=== PATIENT | female | born 1975 | race Caucasian/White ===

== ENCOUNTER 2024-08-21 17:28 | Emergency (ER) | payer OTHER, SELFPAY ==
--- NOTE | ~2024-08-21 | XR_ITS ---
EXAMINATION: XR chest 1V portable DATE: 08/21/2024 18:11 INDICATION: Right chest pain. TECHNIQUE: A single frontal view of the chest was obtained. COMPARISON: None. FINDINGS: There are airspace opacities in right lower lung zone. There is mild atelectasis in left lo wer lung zone. No pleural effusion or pneumothorax. The heart size is normal. IMPRESSION: 1. Airspace opacities in right lower lung zone, consistent with atelectasis versus pneumonia. Reviewed, dictated and finalized at location A. R SALES ASSOCIATE IMPRESSION: 1. Airspace opacities in right lower lung zone, consistent with atelectasis lynda susannah pneumonia.
--- NOTE | ~2024-08-21 | CT_ITS ---
EXAMINATION: CTA chest PE protocol DATE: 08/21/2024 19:23 INDICATION: Shortness of breath. Chest pain. TECHNIQUE: Computed tomography angiography (CTA) of the chest was performed with 100 mL Omnipaque-350 intravenous contrast timed to evaluate the pulmonary arteries. Coronal maximum intensity projection 3D-reconstructions were created by the technologist. Automated exposure control and iterative reconst ruction technique were employed. The dose-length product was 264.62 mGy-cm. COMPARISON: Chest single view 08/21/2024 FINDINGS: There is mild scarring at the lung apices. There are airspace opacities in right middle lob e and right lower lobe, consistent with pneumonia. No pleural effusion. The heart size is normal. No pericardial effusion. There is no pulmonary embolus. There is mild thoracic spondylosis. IMPRESSION: 1. Pneumonia in right middle lobe and right lower lobe. 2. No pulmonary embolus. Sensitivity is moderately decreased by motion artifact. Reviewed, dictated and finalized at location A. ATTENDANT IMPRESSION: 1. Pneumonia in right middle lobe and right lower lobe. 2. No pulmonary embolus. Sensitivity is moderately decreased by motion artifact .
--- NOTE | 2024-08-21 17:46 | ED.URI ---
HPI - URI/Sore Throat General Chief Complaint: Upper Respiratory Infection Stated Complaint: SOB Time Seen by Provider: 08/21/24 17:46 Discharge Plan Discharge Patient Language: Vietnamese Follow-up/Referrals: UNKNOWN,DOCTOR [Primary Care Provider] -
--- NOTE | 2024-08-21 17:51 | ED_ITS ---
HPI - Chest Pain General Chief Complaint: Upper Respiratory Infection Stated Complaint: SOB Time Seen by Provider: 08/21/24 17:46 Source: patient Mode of arrival: ambulatory Limitations: no limitations History of Present Illness HPI narrative: 48-year-old female, nonsmoker, Congenital solitary kidney presents to the ED with a 2 day history of -- right anterior chest wall pain which is sharp and stabbing and made worse by coughing -- nonproductive cough no fever or chills no upper respiratory tract symptoms MD complaint: chest pain Onset (ago): day(s) ( 2 days) Timing of current episode: episodic Prior episodes: No Onset: other ( during coughing and breathing) Pain location: right chest Pain radiation: none Severity: severe Quality: sharp Relieving factors: nothing Exacerbating factors: inspiration Treatment prior to arrival: none Risk Factors Coronary artery disease risk factors: none Thoracic aortic dissection risk factors: none Related Data On Oral Contraceptives: No Allergies Allergy/AdvReac Type Severity Reaction Status Date / Time No Known Allergies Allergy Verified 08/21/24 18:04 Review of Systems 2 Review of Systems: All systems reviewed & are unremarkable except as noted in HPI and below Constitutional: Constitutional: Reports as per HPI and Reports no additional constitutional complaints Eyes: Eyes: Reports as per HPI and Reports no additional eye complaints ENT: Reports system reviewed and no additional complaints, except as documented and Reports as per HPI Cardiovascular: Cardiovascular: Reports as per HPI and Reports no additional cardiovascular complaints Respiratory: Comments: right chest wall pain which is sharp and stabbing and made worse by inspiration and coughing. Gastrointestinal: Gastrointestinal: Reports as per HPI and Reports no additional gastrointestinal complaints Genitourinary: Genitourinary: Reports no additional female genitourinary complaints and Reports as per HPI Musculoskeletal: Musculoskeletal: Reports no additional musculoskeletal complaints and Reports as per HPI Integumentary/Breasts: Skin/Breast: Reports system reviewed and no additional complaints, except as docu and Reports as per HPI Neurologic: Reports system reviewed and no additional complaints, except as documented and Reports as per HPI Psychiatric: Psychiatric: Reports no additional psychiatric complaints and Reports as per HPI Endocrine: Endocrine: Reports no additional endocrine complaints and Reports as per HPI Hematologic/Lymphatic: Hematologic/Lymphatic: Reports no additional hematologic/lymphatic complaints and Reports as per HPI Allergic/Immunologic: Allergic/Immunologic: Reports no additional allergic/immunologic complaints and Reports as per HPI PMFSH Surgical History Surgical History (Updated 08/21/24 @ 17:57 by Tunde Rubin MD) H/O tubal ligation Exam 2 Narrative: afebrile. Vitals are stable. Heart rate of 81. Oxygen saturation of 99% on room air. Const: General: no acute distress Orientation/consciousness: patient oriented x3 Limitations: no limitations HENMT: Head: normal to inspection Ears: external ears normal F kristopher/Nose/Sinus: Normal external nose present Face and sinus: normal facial exam Mouth: Yes Normal oral and palatal mucosa present Throat: posterior oropharynx normal Eyes: Conjunctivae: conjunctivae normal Pupils: Equal, round and reactive pupils present EOM: EOMs intact bilaterally Direct Ophthalmoscopy: no photophobia Neck: Neck: normal visual inspection and no lymphadenopathy Chest: Chest palpation & inspection: normal inspection of the chest Resp: Effort & Inspection: normal respiratory effort Other: Decreased breath sounds on the right side Cardio: Rate: regular rate Rhythm: regular rhythm GI: GI Palp: Yes Soft to palpation Auscultation: normal bowel sounds O ther: no tenderness/ rigidity /rebound. : General: Yes no CVA tenderness Back/Spine/Pelvis: Back: no CVA tenderness Skin: General skin exam: normal color Rashes: no rashes Wounds: no wounds Neuro: General: patient oriented x3, moves all extremities, no meningeal signs, no focal motor deficits and CN's II-XI intact bilaterally Cranial nerves: Yes Nystagmus not present Speech: normal speech Extrem: General: normal to inspection and no clubbing, cyanosis or edema Psych: Mental Status: mental status grossly normal Affect: normal affect Attitude: cooperative Course Course Emergency Course: Right chest wall pain/ pleurisy right lower lobe/ right middle lobe pneumonia-- give a dose of IV Rocephin and IV Zithromax. Will discharge home on Augmentin and Zithromax. influenza a-- will treat with Tamiflu Vital Signs Vital signs: Vital Signs Temperature 36.8 C 08/21/24 17:59 Pulse Rate 81 08/21/24 17:59 Respiratory Rate 20 08/21/24 17:59 Blood Pressure 140/96 H 08/21/24 17:59 Pulse Oximetry 100 08/21/24 17:59 Oxygen Delivery Room Air 08/21/24 17:59 Temperature 36.8 C 08/21/24 17:59 Pulse Rate 81 08/21/24 17:59 Respiratory Rate 20 08/21/24 17:59 Blood Pressure 140/96 H 08/21/24 17:59 Pulse Oximetry 100 08/21/24 18:02 Oxygen Delivery Room Air 08/21/24 18:02 MDM - Chest Pain MDM Narrative Medical decision making narrative: Right middle lobe/right lower lobe pneumonia Differential Diagnosis Differential diagnosis: Likely fracture of rib and pneumothorax Medical Records Data Attestation: I reviewed the patient's medical records. Lab Data Attestation: I reviewed the patient's lab results. 08/21/24 18:11 08/21/24 18:11 Labs: Lab Results 08/21/24 08/21/24 08/21/24 Range/Units 18:00 18:11 19:40 WBC 12.7 H (4.8-10.8) K/mm3 RBC 4.86 (4.20-5.40) M/mm3 Hgb 14.0 (12.0-15.0) g/dL Hct 43.7 (35.0-49.0) % MCV 89.9 (78.0-102.0) fL MCH 28.8 (27.0-31.0) pg MCHC 32.0 (32-36) g/dL RDW 12.9 (11.6-14.4) % Plt Count 575 H (150-420) K/mm3 MPV 8.7 L (9.2-11.8) fl Immature Gran % (Auto) 0.5 H (0.0-0.0) % Neut % (Auto) 67.7 (50.0-70.0) % Lymph % (Auto) 21.6 (18.0-42.0) % [place] % (Auto) 9.7 (2.0-11.0) % Eos % (Auto) 0.3 L (1.0-6.0) % Baso % (Auto) 0.2 (0.0-1.0) % Lymph # (Auto) 2.75 (1.10-4.50) K/mm3 [place] # (Auto) 1.23 H (0.10-0.90) K/mm3 Eos # (Auto) 0.04 (0.02-0.50) K/mm3 Baso # (Auto) 0.03 (0.00-0.10) K/mm3 Abs Immat Gran (auto) 0.06 H (0.00-0.00) K/mm3 Absolute Neuts (auto) 8.63 H (1.70-7.20) K/mm3 Absolute Nucleated RBC 0.00 (0.00-0.00) K/mm3 Nucleated RBC % 0.0 (0-0.0) % % Immature Plt Fraction 1.3 (1.0-7.0) % PT 9.8 (9.50-12.1) Seconds INR 0.9 APTT 29.3 (23.9-30.70) Sec D-Dimer 1.51 H* (0.19-0.50) mg/L Sodium 142 (136-145) mmol/L Potassium 3.8 (3.5-5.1) mmol/L Chloride 103 (98-108) mmol/L Carbon Dioxide 30 (21-32) mmol/L Anion Gap 9 (4-12) mmol/L BUN 12 (7-18) mg/dL Creatinine 0.87 (0.55-1.02) mg/dL Estim Creat Clear Calc 73 ml/min Estimated GFR > 60 (59 - ) Glucose 114 H (70-99) mg/dL Calculated Osmolality 294 (285-295) mOsm/kg Lactic Acid 1.1 (0.4-2.0) mmol/L Calcium 8.8 (8.5-10.1) mg/dL Total Bilirubin 0.3 (0.00-1.00) mg/dL AST 24 (15-37) U/L ALT 37 (14-59) U/L Alkaline Phosphatase 80 (46-116) U/L Troponin I 6.1 (0.00-60.4) ng/L Total Protein 6.9 (6.4-8.2) g/dL Albumin 2.6 L (3.4-5.0) g/dL Urine Color Pending Urine Appearance Pending Urine pH Pending Ur Specific [place] Pending Urine Protein Pending Urine Glucose (UA) Pending Urine Ketones Pending Ur Blood (Man) Pending Urine Nitrate Pending Urine Bilirubin Pending Urine Urobilinogen Pending Leukocyte Esterase Rfl Pending Influenza A (RT-PCR) Positive A (Negative) Influenza B (RT-PCR) Negative (Negative) RSV (RT-PCR) Negative (Negative) SARS-CoV-2 RNA (RT-PCR) Negative (Negative) ECG Data EKG #1: ECG completion date: 08/21/24 ECG completion time: 19:16 Interpretation: Normal sinus rhythm. Normal axis. Left ventricular hypertrophy. No ST elevation. Discharge Plan Discharge Clinical Impression: Pneumonia, Pleurisy, Influenza A Patient Disposition: Home, Self-Care Condition: Stable Instructions: Antibiotic Form, Influenza (ED), Bacterial Pneumonia (ED) Patient Language: Occitan Prescriptions: New amoxicillin-pot clavulanate 875-125 mg tablet 1 tablet PO Q12H Qty: 14 0RF azithromycin [Zithromax] 250 mg tablet 250 mg PO DAILY 4 Days Qty: 4 0RF Rx Instructions: start on day 2 of therapy oseltamivir [Tamiflu] 75 mg capsule 75 mg PO Q12H 5 Days Qty: 10 0RF Follow-up/Referrals: UNKNOWN,DOCTOR [Primary Care Provider] - Time of Disposition: 20:08
[2024-08-21 17:59] VITALS: BP 140/96; PULSE 81; RESP 20; TEMP 36.8; O2SAT 100
--- NOTE | 2024-08-21 17:59 | ECG_ITS ---
Test Date: 2024-08-21 19:16:10 Measurements Intervals [place] Rate: 83 P: 74 NC: 149 QRS: 71 QRSD: 88 T: 72 QT: 357 QTc: 420 Interpretive Statements SINUS RHYTHM VOLTAGE CRITERIA FOR LVH BORDERLINE ST ABNORMALITY- ANTEROLAT/INF LEADS BASELINE ARTIFACT- I, II, III, AVR, AVL, AVF BORDERLINE ECG No previous ECG available for comparison Electronically Signed On 08-22-2024 05:57:46 CREDENTIALING ASSISTANT by Pablo Fernandez D.O.
[2024-08-21 18:02] VITALS: O2SAT 100
--- NOTE | 2024-08-21 18:08 | PC.NURSE ---
Covid culture sent to lab
[2024-08-21 18:16] LABS: Basophils Absolute Auto 0.03 K/mm3 (0.00-0.10); Basophils Percent Auto 0.2 % (0.0-1.0); Eosinophils Absolute Auto 0.04 K/mm3 (0.02-0.50); Eosinophils Percent Auto 0.3 % (1.0-6.0); Hematocrit 43.7 % (35.0-49.0); Immature Granulocyte Absolute 0.06 K/mm3 (0.00-0.00); Immature Granulocyte Percent A 0.5 % (0.0-0.0); Immature Platelet Fraction Pct 1.3 % (1.0-7.0); Lymphocytes Absolute Auto 2.75 K/mm3 (1.10-4.50); Lymphocytes Percent Auto 21.6 % (18.0-42.0); Mean Corpuscular Hemoglobin 28.8 pg (27.0-31.0); Mean Corpuscular Volume 89.9 fL (78.0-102.0); Mean Platelet Volume 8.7 fl (9.2-11.8); Monocytes Absolute Auto 1.23 K/mm3 (0.10-0.90); Monocytes Percent Auto 9.7 % (2.0-11.0); Neutrophils Absolute Auto 8.63 K/mm3 (1.70-7.20); Neutrophils Percent Auto 67.7 % (50.0-70.0); Platelet Count Result 575 K/mm3 (150-420); Red Blood Count 4.86 M/mm3 (4.20-5.40); Red Cell Distribution Width 12.9 % (11.6-14.4); White Blood Count 12.7 K/mm3 (4.8-10.8)
[2024-08-21 18:29] LABS: INR 0.9; Partial Thromboplastin Time 29.3 Sec (23.9-30.70); Prothrombin Time 9.8 Seconds (9.50-12.1)
[2024-08-21 18:33] LABS: Lactic Acid Reflex 1.1 mmol/L (0.4-2.0)
[2024-08-21 18:38] LABS: D Dimer 1.51 mg/L (0.19-0.50)
[2024-08-21 18:39] LABS: Alanine Aminotransferase 37 U/L (14-59); Albumin Level 2.6 g/dL (3.4-5.0); Alkaline Phosphatase 80 U/L (46-116); Anion Gap 9 mmol/L (4-12); Aspartate Amino Transferase 24 U/L (15-37); Bilirubin,Total 0.3 mg/dL (0.00-1.00); Blood Urea Nitrogen 12 mg/dL (7-18); Calcium 8.8 mg/dL (8.5-10.1); Carbon Dioxide 30 mmol/L (21-32); Chloride 103 mmol/L (98-108); Estimated CRCL calculation 73 ml/min; Estimated Glomerular Filt Rate > 60; Glucose 114 mg/dL (70-99); Osmolality Calculated 294 mOsm/kg (285-295); Potassium 3.8 mmol/L (3.5-5.1); Sodium 142 mmol/L (136-145); Total Protein 6.9 g/dL (6.4-8.2)
[2024-08-21 18:40] LABS: Troponin I 6.1 ng/L (0.00-60.4)
[2024-08-21 18:46] LABS: SARS-CoV-2 RNA PCR Negative (Negative)
[2024-08-21 19:18] LABS: Influenza A QL RT-PCR Positive (Negative); Influenza B QL RT-PCR Negative (Negative); RSV RNA, RT-PCR Negative (Negative)
--- NOTE | 2024-08-21 19:23 | PC.NURSE ---
patient report received from ROBERT Keys for continuation of care on mini shifter.
[2024-08-21] MEDS: LACTATED RINGERS 500 ML 999 ML IV CONT (19:32)
[2024-08-21] MEDS: AZITHROMYCIN 500 MG/NS 250 ML 500 MG/250 ML BAG 250 MG IVPB (19:38)
[2024-08-21 19:49] LABS: Add Urine Microscopic? YES; Appearance Urine Clear (Clear); Bilirubin Urine Negative (Negative); Blood Urine Negative (Negative); Color Urine Light Yellow (Yellow); Glucose Urine UA Negative (Negative); Ketones Urine Trace (Negative); Leukocyte Esterase Ur 1+ LEU/UL (Negative); Nitrate Urine Positive (Negative); Protein Urine Trace (Negative); pH Urine 5.5 (5.0-8.0)
[2024-08-21 20:09] VITALS: BP 123/83; PULSE 85; RESP 18; TEMP 36.4; O2SAT 99
[2024-08-21 20:09] LABS: RBC Urine 0-2 /hpf (0-2); Squamous Epithelial Cell Urine Few /hpf (Few); WBC Urine 21-30 /hpf (0-3)
[2024-08-21 20:10] LABS: Bacteria Urine 2+ /hpf
[2024-08-21] MEDS: ONDANSETRON INJ 4 MG/2 ML VIAL IV PUSH (20:12)
[2024-08-21] MEDS: MORPHINE SULFATE (*CRX) 2 MG/ML INJ IV PUSH (20:12)
--- NOTE | 2024-08-21 20:20 | PC.NURSE ---
patient medicated, see AUG. vss. Dr. Rubin at bedside speaking with patient regarding results and plan. patient given more ice water.
[2024-08-21] MEDS: OSELTAMIVIR PHOSPHATE 75 MG CAPSULE PO (20:23)
--- NOTE | 2024-08-23 14:04 | PC.NURSE ---
preliminary blood cultures x2 reviewed. no growth to date
--- NOTE | 2024-08-24 12:09 | PC.NURSE ---
urine culture final reviewed, pt on augmentin. no change needed.
== END 2024-08-21 20:46 | disposition home or self-care (01) ==
PROVIDERS: Emergency Provider Internal Medicine Critical Care Medicine
DX: J18.9 Pneumonia, unspecified organism (principal); J10.1 Influenza due to other identified influenza virus with other respiratory manifestations; R09.1 Pleurisy; Z20.822 Contact with and (suspected) exposure to COVID-19
CPT/HCPCS: 36415; 71045; 71275; 80053; 81001; 83605; 84484; 85025; 85055; 85380; 85610; 85730; 87040; 87086; 87186; 87637; 93005; 96365; 96368; 96372; 96375; 99284; A9270; J0456; J0696; J2270; J2405; J7120; Q9967

== ENCOUNTER 2025-03-13 20:40 | Emergency (ER) | payer OTHER, SELFPAY ==
[2025-03-13 20:47] VITALS: BP 152/98; PULSE 86; RESP 18; TEMP 36.7; O2SAT 100
--- NOTE | 2025-03-13 20:52 | ED.WOUNDLAC ---
HPI - Wound/Laceration General Chief Complaint: Skin/Abscess/Foreign Body Stated Complaint: spider bite Time Seen by Provider: 03/13/25 20:41 Source: patient Mode of arrival: ambulatory Limitations: no limitations History of Present Illness HPI narrative: this is a 49-year-old female who presents with a lesion that appears to be an insect bite to her left upper inner thigh with an area of erythema approximately 4cm in diameters warm and tender with no fluctuance currently no drainage no fever chills no nausea vomiting no shortness of breath. Onset (ago): day(s) Location: other Extremity Location: Left: thigh ( Area of erythema with a central lesion) Related Data Allergies Allergy/AdvReac Type Severity Reaction Status Date / Time No Known Allergies Allergy Verified 08/21/24 18:04 Review of Systems Review of Systems: All systems reviewed & are unremarkable except as noted in HPI and below PMFSH Past Medical History Medical History Patient denies medical problems Surgical History Surgical History H/O tubal ligation Exam Const: General: healthy appearing and no acute distress Nutritional Appearance: well nourished Orientation/consciousness: patient oriented x3 Neck: Neck: normal visual inspection, no lymphadenopathy and no meningeal signs Chest: Chest palpation & inspection: normal inspection of the chest Resp: Effort & Inspection: normal respiratory effort Auscultation: clear to auscultation bilaterally Cardio: Rate: regular rate Rhythm: regular rhythm GI: GI Palp: Yes Soft to palpation Auscultation: normal bowel sounds Back/Spine/Pelvis: Back: no CVA tenderness Skin: Wounds: wounds noted Other: central lesion left upper inner thigh with an area of erythema approximately 4cm in diameter that is warm and tender to touch Extrem: General: normal to inspection and no clubbing, cyanosis or edema Course Course Emergency Course: administered 1g IM ceftriaxone and updated with a tetanus the area is nonfluctuant no drainage with an area of erythema. Critical Care Time Critical Care Time Critical Care Time: No Discharge Plan Discharge Clinical Impression: Insect bite, Cellulitis and abscess of left leg Patient Disposition: Home Condition: Stable Instructions: Antibiotic Form, Cellulitis (ED), Insect Bite or Sting (ED) Additional Instructions: advised take medication as prescribed and to follow up with primary care physician if symptoms persist or worsen. Patient Language: Bulgarian Prescriptions: New amoxicillin-pot clavulanate [Augmentin] 500-125 mg tablet 1 tablet PO TID Qty: 30 0RF naproxen 500 mg tablet 500 mg PO BID PRN (Reason: pain) Qty: 14 0RF No Action amoxicillin-pot clavulanate 875-125 mg tablet 1 tablet PO Q12H Qty: 14 0RF azithromycin [Zithromax] 250 mg tablet 250 mg PO DAILY 4 Days Qty: 4 0RF Rx Instructions: start on day 2 of therapy oseltamivir [Tamiflu] 75 mg capsule 75 mg PO Q12H 5 Days Qty: 10 0RF Follow-up/Referrals: UNKNOWN,DOCTOR [Primary Care Provider] Time of Disposition: 20:56
[2025-03-13] MEDS: cefTRIAXone 1 GM, LIDOCAINE 1% LOCAL INJ 2.1 ML IM (21:20)
[2025-03-13] MEDS: TETANUS,DIPHTHERIA,AC PERTUSSIS ADULT 0.5 ML (ADACEL) IM (21:21)
[2025-03-13 21:55] VITALS: BP 138/87; PULSE 82; RESP 20; O2SAT 97
== END 2025-03-13 21:55 | disposition home or self-care (01) ==
LOC: CHSED 21:02
PROVIDERS: Emergency Provider Emergency Medicine; Referring Provider Family Medicine
DX: S70.362A Insect bite (nonvenomous), left thigh, initial encounter (principal); L03.116 Cellulitis of left lower limb; W57.XXXA Bitten or stung by nonvenomous insect and other nonvenomous arthropods, initial encounter; Z23 Encounter for immunization
CPT/HCPCS: 90471; 90715; 99283; J0696; J2003